=== PATIENT | male | born 2005 | race Caucasian/White ===

== ENCOUNTER 2024-03-23 23:13 | Emergency (ER) | payer OTHER, SELFPAY ==
--- OUTSIDE RECORDS SUMMARY | 2024-03-23 23:15 | XMS_ITS | Clinical Summary ---
Author Organization [facility] Address [place], [place] [address] Care Team Providers Care Promotional Marketing Agent Name Role Phone Joshua House MD Unavailable Unavail able Jay Espinoza MD Primary Care Provider [phone] Allergies No known active allergies Medications medication order composer Fish oil gummy - takes 2 per day 0 4 Active medication order composer Melatonin 3 mg gummy - takes 2 per night 0 4 Active melatonin [address] under the tongue. 0 6 Active triamcinolone (ARISTOCORT; KENALOG) 0.1 % creamIndication s:Rash Apply topically to affected area(s) three times daily. 80 g 3 Active hydrOXYzine pamoate (VISTARIL) 25 mg capsuleIndicati ons:Urticaria Take 1 Capsule (25 mg) by mouth 3 times daily if needed for Itching. 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 Acute bronchospasm 04/07/2008 Overview (04/07/2008): Uses neb 2-3x yearly Resolved Problems Problem Noted Date Diagnosed Date Resolved Date Other and unspecified noninf ectious gastroenteritis and colitis(558.9) 10/07 Overview (10/07/2013): rotavirus when 1 mo old /hospital x3 days Immunizations Name Administration Dates Next Due AMB Influenza, IIV3 (Age >=3 years)(Flu Clinic Only) 10/29/2012 DTaP 04/07/2008,07/11/2004 [id number] (Pediarix) 2003,2003,0 2003 HIB PRP-OMP (PedvaxHIB) 07/11/2004,2003, HPV 9 (Gardasil 9) 01/06/2018,07/06/2015 Hepatitis A (Peds) 01/06/2018,10/07/2013 Inactivated Polio Vaccine 04/07/2008 Influenza, IIV3 (Age >=3 years) 11/30/2009,12/29 MENINGOCOCCAL VACCINE 2 VIAL [id number] (MENVEO) 07/06/2015 MMR 04/07/2008,03/27/2004 Pneumococcal conj 7-Valent (Prevnar 7) 5,2003,2003 Td (Age >=7 Years) 08/10/2022 08/10/2032 Tdap 07/06/2015 Varicella Vaccine 07/06/2008,04/07/2008,07/12/19 05 Family History Medical History Relation Name Comments Good Health Father Psychiatric illness Maternal Aunt depress ion Good Health Mother Other Other maternal great- grandmother and great-aunts with breast ca Good Health Sister Relation Name Status Comments Father Maternal Aunt Mother Other Sister Social History Tobacco Use Types Packs/Day Years Used Date Smoking Tobacco: Former Cigarettes 0.3 2.3 S tarted: 12/18/2021 Smokeless Tobacco: Never Tobacco Cessation:Counseling Given: Not Answered Comments:Quit 06/2022 Alcohol Use Standard Drinks/Week Comments Never 0 (1 standard drink = 0.6 oz pur e alcohol) PHQ-2 Answer Date Recorded PHQ-2 Score 0 04/12/2018 Sex and Gender Information Value Date Recorded Sex Assigned at Not on file Legal Sex Male 6:20 PM CDT Gender Identity Not on file Sexual Orientation Not on file 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 file Not on file Not on file Obstetrics History Last Filed Vital Signs Vital Sign Reading Time Taken Comments Blood Pressure 102/68 09/10/2022 11:15 AM CDT Pulse 79 09/10/2022 11:15 AM CDT Temperature 36.4 C (97.5 F) 09/10/2022 11:15 AM CDT Respiratory Rate 16 07/10/2022 7:16 PM CDT Oxygen Saturation 99% 09/10/2022 11:15 AM CDT Inhaled Oxygen Concentration - - Weight 66.2 kg (146 lb) 09/10/2022 11:15 AM CDT Height 174 cm (5' 8.5) 09/10/2022 11:15 AM CDT Body Mass Index 21.88 09/10/2022 11:15 AM CDT Plan of Treatment Health Maintenance Due Date Last Done Comments HIV for age 15-65 2018 Depression screening for age 12+ 01/06/2019 01/06/2018, 11/02/2015, 07/06/2015 Well Child Check for age 3-20 01/06/2019 01/06/2018, 07/06/2015, 10/07/2013, Additional history exists Hepatitis C screening for age 18-79 2021 BMI (ht and wt on same day) for age 18+ 09/11/2023 09/10/2022, 08/27/2022, 07/19/2022 COVID-19 vaccine series ( season) 2023 Influenza for age 9-49 10/13/2023 3, 11/30/2009, 12/29/2005 Tetanus booster 08/10/2032 08/10/2022, 07/06/2015 Pneumococcal series for age 6-49 Aged Out 03/27/2004, 2003, 2003 No longer eligible based on patient's age to complete this topic Meningococcal series for age 11-21 Aged Out 07/06/2015 No longer eligible based on patient's age to complete this topic Tdap Completed 07/06/2015 HPV series for age 9-26 Completed 01/06/2018, 07/05 Insurance MEDICA CHOICE [employer] Care Teams Promotional Marketing Agent Relationship Specialty Start Date End Date Jay Espinoza MD [address] [place] [address] PCP - General Family Practice 08/10/22 Joshua House MD 07/10/22
[2024-03-23 23:18] VITALS: BP 118/75; PULSE 98; RESP 16; TEMP 36.8; O2SAT 96; BMI 19.5
--- NOTE | 2024-03-23 23:25 | ED.GENADULT ---
HPI - General Adult General Time Seen by Provider: 23:25 <Alyssa Campa MD - Last Filed: 03/24/24 18:46> Date Seen: 03/23/24 <Alyssa Campa MD - Last Filed: 03/24/24 18:46> Chief complaint: Unspecified Complaint, Adult <Alyssa Campa MD - Last Filed: 03/24/24 18:46> Stated complaint: poss carbon monoxide poisoning <Alyssa Campa MD - Last Filed: 03/24/24 18:46> Time Seen by Provider: 03/23/24 23:24 <Alyssa Campa MD - Last Filed: 03/24/24 18:46> Source: patient and RN notes reviewed <Alyssa Campa MD - Last Filed: 03/24/24 18:46> Mode of arrival: ambulatory <Alyssa Campa MD - Last Filed: 03/24/24 18:46> Limitations: no limitations <Alyssa Campa MD - Last Filed: 03/24/24 18:46> History of Present Illness HPI narrative: This 19-year-old male checks in after his girlfriend has been found to have a carboxyhemoglobin level of 24.2%. He was advised to check in after this finding. They both were riding in a car that has a car exhaust leak issue. They were in the car for about 2 hours running errands. Does have a dull headache. He does not have any complaints of any confusion or any tremors or neurologic changes while in the car. He states he does drive this car around a lot more than she does baseline. He admits that he felt a little woozy, felt some pressure behind his ears. He does have neck pain which she states is chronic. He is not short of breath, no chest pain. They did smoke marijuana tonight but neither of them are tobacco smokers routinely. <Alyssa Campa MD - Last Filed: 03/24/24 18:46> Related Data Home medications: Home Medications ?Medication ?Instructions ?Recorded ?Confirmed No Known Home Medications 03/23/24 03/23/24 <Alyssa Campa MD - Last Filed: 03/24/24 18:46> Allergies/adverse reactions: Allergies Allergy/AdvReac Type Severity Reaction Status Date / Time No Known Drug Allergies Allergy Verified 03/23/24 23:24 <Alyssa Campa MD - Last Filed: 03/24/24 18:46> Review of Systems Status of ROS: Reports: 6 or more systems reviewed and unremarkable except as noted in History and below <Alyssa Campa MD - Last Filed: 03/24/24 18:46> PFSH [facility] Social History: Social History Smoking Status: Light tobacco smoker Do you use any of these nicotine containing products: Vaping Products How often do you have a drink containing alcohol: never AUDIT-C Alcohol total score: 0 Non-prescribed substance use: marijuana (any form) <Alyssa Campa MD - Last Filed: 03/24/24 18:46> Exam Const: Vital Signs, click to edit/add: Vital Signs - 24 hr 03/23/24 23:18 03/23/24 23:24 03/24/24 00:22 Temperature 98.3 F Pulse Rate [Left P ulse Oximeter] 98 Respiratory Rate 16 Blood Pressure [Ri ght Upper Arm] 118/75 Pulse Oximetry 96 98 Oxygen Delivery Me thod Room Air Non Rebreather Mas k Oxygen Flow Rate 03/24/24 00:22 03/24/24 00:24 03/24/24 01:00 Temperature Pulse Rate [Left P ulse Oximeter] 82 73 67 Respiratory Rate 18 16 16 Blood Pressure [Ri ght Upper Arm] 89/56 L 118/65 Pulse Oximetry 98 99 99 Oxygen Delivery Me thod Room Air Non Rebreather Mas k Non Rebreather Mas k Oxygen Flow Rate 10 03/24/24 01:30 03/24/24 02:30 03/24/24 03:00 Temperature Pulse Rate [Left P ulse Oximeter] 54 L 53 L 51 L Respiratory Rate 16 16 16 Blood Pressure [Ri ght Upper Arm] 105/58 L 122/71 111/59 L Pulse Oximetry 99 98 100 Oxygen Delivery Me thod Non Rebreather Mas k Non Rebreather Mas k Non Rebreather Mas k Oxygen Flow Rate 10 10 10 03/24/24 06:05 Temperature Pulse Rate [Left P ulse Oximeter] 59 L Respiratory Rate 16 Blood Pressure [Ri ght Upper Arm] 117/65 Pulse Oximetry 100 Oxygen Delivery Me thod Non Rebreather Mas k Oxygen Flow Rate 10 This 19-year-old male is ambulatory in the ER with normal gait. He is alert, interactive, no apparent distress. Pupils equal round reactive, sclera clear, symmetrical facial function, speech is normal. Neck supple, no adenopathy or masses. Lungs are clear, good air entry, no wheezing or crackles. CV regular rate and rhythm, no murmur. Strength is 5 5 and symmetric he has no tremors, no dysmetria. <Alyssa Campa MD - Last Filed: 03/24/24 18:46> Vital Signs, click to edit/add: Vital Signs - 24 hr 03/23/24 23:18 03/23/24 23:24 03/24/24 00:22 Temperature 98.3 F Pulse Rate [Left P ulse Oximeter] 98 Respiratory Rate 16 Blood Pressure [Ri ght Upper Arm] 118/75 Pulse Oximetry 96 98 Oxygen Delivery Me thod Room Air Non Rebreather Mas k Oxygen Flow Rate 10 03/24/24 00:22 03/24/24 00:24 03/24/24 01:00 Temperature Pulse Rate [Left P ulse Oximeter] 82 73 67 Respiratory Rate 18 16 16 Blood Pressure [Ri ght Upper Arm] 89/56 L 118/65 Pulse Oximetry 98 99 99 Oxygen Delivery Me thod Room Air Non Rebreather Mas k Non Rebreather Mas k Oxygen Flow Rate 10 03/24/24 01:30 03/24/24 02:30 03/24/24 03:00 Temperature Pulse Rate [Left P ulse Oximeter] 54 L 53 L 51 L Respiratory Rate 16 16 16 Blood Pressure [Ri ght Upper Arm] 105/58 L 122/71 111/59 L Pulse Oximetry 99 98 100 Oxygen Delivery Me thod Non Rebreather Mas k Non Rebreather Mas k Non Rebreather Mas k Oxygen Flow Rate 10 10 03/24/24 06:05 Temperature Pulse Rate [Left P ulse Oximeter] 59 L Respiratory Rate 16 Blood Pressure [Ri ght Upper Arm] 117/65 Pulse Oximetry 100 Oxygen Delivery Me thod Non Rebreather Mas k Oxygen Flow Rate 10 <Fab Ricardo MD - Last Filed: 03/24/24 05:29> Documenting provider has reviewed patient's vital signs: yes <Alyssa Campa MD - Last Filed: 03/24/24 18:46> Course Course ED Course: Patient will have his labs drawn, will presume that his carboxyhemoglobin will be elevated. Will have him on non-rebreather 10 L oxygen, have him on pulse oximetry and cardiac monitoring. He will have an EKG and appropriate labs. <Alyssa Campa MD - Last Filed: 03/24/24 18:46> Reevaluation(s) Time of Reevaluation #1: 23:47 <Alyssa Campa MD - Last Filed: 03/24/24 18:46> Reevaluation #1: Carboxyhemoglobin was 18.6%. Patient is already on appropriate monitoring and 10 L non-rebreather oxygen. <Alyssa Campa MD - Last Filed: 03/24/24 18:46> Reevaluation #2: Patient signed out to Dr. Ricardo at shift change-midnight. Dr. Ricardo rechecked patient. He was resting comfortably in his chair next to his girlfriend. No complaints. Plan will be to keep him on 100% oxygen through non-rebreather for about 6 hours. Repeat troponin at 4:00 a.m.. Patient has no complaints. No current symptoms. Agreeable to the plan. <Fab Ricardo MD - Last Filed: 03/24/24 05:29> Reevaluation #3: Repeat troponin undetectable. Patient otherwise asymptomatic. Continuing oxygen therapy. Will continue until 6 hours of oxygen via non-rebreather. At that point as per sign-out by Dr. Pollard after discussion with the hyperbaric team at [facility] [place] [place], patient is safe for discharge home. <Fab Ricardo MD - Last Filed: 03/24/24 05:29> Consultations Consultation #1: Have spoken to medical guest experience specialist Dr. Randall from [facility] [place] [place]. He states that they are going away from a levels as levels do not necessarily correlate with symptoms. They would do 6 hours of non-rebreather oxygen. If patient had syncope, ongoing cardiac symptoms, persistent neurologic deficits, consideration for hyperbaric chamber would be made and we should contact them back. He would repeat a troponin. <Alyssa Campa MD - Last Filed: 03/24/24 18:46> Time: 00:12 <Alyssa Campa MD - Last Filed: 03/24/24 18:46> Consultation #2: Recheck-has completed 6 hours of oxygen non-rebreather. Remains asymptomatic. Stable for discharge as per Dr. Pollard's plan. Patient agreeable. <Fab Ricardo MD - Last Filed: 03/24/24 05:29> Vital Signs Vital signs: Initial Vital Signs Temperature 98.3 F 03/23/24 23:18 Temperature Source Oral 03/23/24 23:18 Pulse Rate 98 03/23/24 23:18 Respiratory Rate 16 03/23/24 23:18 Blood Pressure 118/75 03/23/24 23:18 Blood Pressure Mean 89 03/23/24 23:18 Blood Pressure Position Sitting 03/23/24 23:18 Pulse Oximetry 96 03/23/24 23:18 Oxygen Delivery Method Room Air 03/23/24 23:18 Vital Signs Temperature 98.3 F 03/23/24 23:18 Pulse Rate 98 03/23/24 23:18 Respiratory Rate 16 03/23/24 23:18 Blood Pressure 118/75 03/23/24 23:18 Pulse Oximetry 96 03/23/24 23:18 Oxygen Delivery Method Room Air 03/23/24 23:18 Temperature 98.3 F 03/23/24 23:18 Pulse Rate 59 L 03/24/24 06:05 Respiratory Rate 16 03/24/24 06:05 Blood Pressure 117/65 03/24/24 06:05 Pulse Oximetry 100 03/24/24 06:05 Oxygen Delivery Method Non Rebreather Mask 03/24/24 06:05 Oxygen Flow Rate 10 03/24/24 06:05 <Alyssa Campa MD - Last Filed: 03/24/24 18:46> Initial Vital Signs Temperature 98.3 F 03/23/24 23:18 Temperature Source Oral 03/23/24 23:18 Pulse Rate 98 03/23/24 23:18 Respiratory Rate 16 03/23/24 23:18 Blood Pressure 118/75 03/23/24 23:18 Blood Pressure Mean 89 03/23/24 23:18 Blood Pressure Position Sitting 03/23/24 23:18 Pulse Oximetry 96 03/23/24 23:18 Oxygen Delivery Method Room Air 03/23/24 23:18 Vital Signs Temperature 98.3 F 03/23/24 23:18 Pulse Rate 98 03/23/24 23:18 Respiratory Rate 16 03/23/24 23:18 Blood Pressure 118/75 03/23/24 23:18 Pulse Oximetry 96 03/23/24 23:18 Oxygen Delivery Method Room Air 03/23/24 23:18 Temperature 98.3 F 03/23/24 23:18 Pulse Rate 59 L 03/24/24 06:05 Respiratory Rate 16 03/24/24 06:05 Blood Pressure 117/65 03/24/24 06:05 Pulse Oximetry 100 03/24/24 06:05 Oxygen Delivery Method Non Rebreather Mask 03/24/24 06:05 Oxygen Flow Rate 10 03/24/24 06:05 <Fab Ricardo MD - Last Filed: 03/24/24 05:29> Medical Decision Making Lab Data Lab results reviewed: Yes I reviewed the patient's lab results <Alyssa Campa MD - Last Filed: 03/24/24 18:46> Lab results narrative: Troponin is normal. <Alyssa Campa MD - Last Filed: 03/24/24 18:46> Labs: Lab Results 03/23/24 03/23/24 03/24/24 Range/Units 23:24 23:35 04:00 WBC 13.92 H (4.50-11.00) K/uL RBC 5.66 (4.30-5.90) m/uL Hgb 16.1 (13.5-17.5) gm/dL Hct 46.9 (37.0-53.0) % MCV 83 (80-100) fL MCH 28 (26-34) pg MCHC 34 (32-36) gm/dL RDW Coeff of Ariel 12.3 (11.5-15.5) % Plt Count 359 (140-440) K/uL Neut % (Auto) 54.6 (42.0-72.0) % Lymph % (Auto) 34.3 (20-44) % [place] % (Auto) 8.8 (0.0-11.0) % Eos % (Auto) 1.7 (0.0-7.0) % Baso % (Auto) 0.4 (0.0-3.0) % Neut # (Auto) 7.60 H (1.7-7.0) K/uL Lymph # (Auto) 4.80 H (0.90-2.90) K/uL [place] # (Auto) 1.20 H (0.00-0.90) K/UL Eos # (Auto) 0.20 (0.00-0.50) K/uL Baso # (Auto) 0.10 (0.00-0.30) K/uL Abs Immat Gran (auto) 0.00 (0.00-0.30) K/uL Imm/Tot Granulo (auto) 0.2 % VBG pH 7.374 (7.32-7.43) VBG pCO2 52 H (40-50) mmHG VBG pO2 < 30.1 (25-47) mmHG VBG HCO3 30 H (21-28) mmol/L Carboxyhemoglobin 18.6 H* (0.0-5.0) % Sodium 141 (135-149) mmol/L Potassium 3.5 L (3.6-5.1) mmol/L Chloride 100 (96-114) mmol/L Carbon Dioxide 29 (20-32) mmol/L Anion Gap 12 (7-15) mEq/L BUN 15 (5-24) mg/dL Creatinine 0.9 (0.5-1.5) mg/dL Estimated Creat Clear 109.95 Estimated GFR 125 ml/min Glucose 81 (60-115) mg/dL Calcium 10.0 (8.4-10.6) mg/dL Total Bilirubin 0.4 (0.1-1.5) mg/dL AST 27 (12-35) U/L ALT 21 (4-50) U/L Alkaline Phosphatase 55 (40-150) U/L Total Protein 8.8 H (6.0-8.3) g/dL Albumin 5.3 H (3.3-5.0) g/dL POC Troponin I 0.00 L 0.00 L (0.01-0.04) ng/ml <Alyssa Campa MD - Last Filed: 03/24/24 18:46> Lab Results 03/23/24 03/23/24 03/24/24 Range/Units 23:24 23:35 04:00 WBC 13.92 H (4.50-11.00) K/uL RBC 5.66 (4.30-5.90) m/uL Hgb 16.1 (13.5-17.5) gm/dL Hct 46.9 (37.0-53.0) % MCV 83 (80-100) fL MCH 28 (26-34) pg MCHC 34 (32-36) gm/dL RDW Coeff of Ariel 12.3 (11.5-15.5) % Plt Count 359 (140-440) K/uL Neut % (Auto) 54.6 (42.0-72.0) % Lymph % (Auto) 34.3 (20-44) % [place] % (Auto) 8.8 (0.0-11.0) % Eos % (Auto) 1.7 (0.0-7.0) % Baso % (Auto) 0.4 (0.0-3.0) % Neut # (Auto) 7.60 H (1.7-7.0) K/uL Lymph # (Auto) 4.80 H (0.90-2.90) K/uL [place] # (Auto) 1.20 H (0.00-0.90) K/UL Eos # (Auto) 0.20 (0.00-0.50) K/uL Baso # (Auto) 0.10 (0.00-0.30) K/uL Abs Immat Gran (auto) 0.00 (0.00-0.30) K/uL Imm/Tot Granulo (auto) 0.2 % VBG pH 7.374 (7.32-7.43) VBG pCO2 52 H (40-50) mmHG VBG pO2 < 30.1 (25-47) mmHG VBG HCO3 30 H (21-28) mmol/L Carboxyhemoglobin 18.6 H* (0.0-5.0) % Sodium 141 (135-149) mmol/L Potassium 3.5 L (3.6-5.1) mmol/L Chloride 100 (96-114) mmol/L Carbon Dioxide 29 (20-32) mmol/L Anion Gap 12 (7-15) mEq/L BUN 15 (5-24) mg/dL Creatinine 0.9 (0.5-1.5) mg/dL Estimated Creat Clear 109.95 Estimated GFR 125 ml/min Glucose 81 (60-115) mg/dL Calcium 10.0 (8.4-10.6) mg/dL Total Bilirubin 0.4 (0.1-1.5) mg/dL AST 27 (12-35) U/L ALT 21 (4-50) U/L Alkaline Phosphatase 55 (40-150) U/L Total Protein 8.8 H (6.0-8.3) g/dL Albumin 5.3 H (3.3-5.0) g/dL POC Troponin I 0.00 L 0.00 L (0.01-0.04) ng/ml <Fab Ricardo MD - Last Filed: 03/24/24 05:29> ECG Data Attestation: I personally reviewed and interpreted this ECG as follows: (Normal sinus rhythm, 85 beats per minute. No evidence of any arrhythmia or ischemic change.) <Alyssa Campa MD - Last Filed: 03/24/24 18:46> Prior ECG tracings: not available for review <Alyssa Campa MD - Last Filed: 03/24/24 18:46> Discharge Plan Discharge Clinical Impression: Accidental poisoning by carbon monoxide <Alyssa Campa MD - Last Filed: 03/24/24 18:46> Patient Disposition: Home, Self-Care <Alyssa Campa MD - Last Filed: 03/24/24 18:46> Condition: Stable <Alyssa Campa MD - Last Filed: 03/24/24 18:46> Instructions: Carbon Monoxide Poisoning (ED) <Alyssa Campa MD - Last Filed: 03/24/24 18:46> Additional Instructions: You really need to get the exhaust system fixed in your vehicle for safety purposes. As you are aware, carbon monoxide poisoning can be lethal. People can also suffer from chronic issues due to carbon monoxide poisoning. I highly advise you to not operate this vehicle until this issue is fixed. Would not recommend any use of any cigarettes or vaping products at this time, they can increase the carboxyhemoglobin level. <Alyssa Campa MD - Last Filed: 03/24/24 18:46> Activity Level: Activity as Tolerated <Alyssa Campa MD - Last Filed: 03/24/24 18:46> Activity as Tolerated <Fab Ricardo MD - Last Filed: 03/24/24 05:29> Prescriptions: No Action No Known Home Medications <Alyssa Campa MD - Last Filed: 03/24/24 18:46> Follow Up/Referrals: Joshua House MD [Primary Care Provider] - <Alyssa Campa MD - Last Filed: 03/24/24 18:46> Stand Alone Forms: [employer] Info Instructions <Alyssa Campa MD - Last Filed: 03/24/24 18:46>
[2024-03-23 23:43] LABS: Basophils Percent Auto 0.4 % (0.0-3.0); Eosinophils Percent Auto 1.7 % (0.0-7.0); Hematocrit 46.9 % (37.0-53.0); Hemoglobin* 16.1 gm/dL (13.5-17.5); Immature Granulocytes Pct Auto 0.2 %; Lymphocytes Percent Auto 34.3 % (20-44); Mean Corpuscular HGB Conc 34 gm/dL (32-36); Mean Corpuscular Hemoglobin 28 pg (26-34); Mean Corpuscular Volume 83 fL (80-100); Monocytes Percent Auto 8.8 % (0.0-11.0); Neutrophils Percent Auto 54.6 % (42.0-72.0); Platelet Count* 359 K/uL (140-440); RDW Coefficient of Variation % 12.3 % (11.5-15.5); Red Blood Count 5.66 m/uL (4.30-5.90); White Blood Count* 13.92 K/uL (4.50-11.00)
[2024-03-23 23:45] LABS: HCO3 VBG 30 mmol/L (21-28); PCO2 VBG 52 mmHG (40-50); PO2 VBG < 30.1 mmHG (25-47); Slide Review Reflex No; pH VBG 7.374 (7.32-7.43)
[2024-03-23 23:46] LABS: Carboxyhemoglobin* 18.6 % (0.0-5.0)
[2024-03-24] VITALS (7 sets, daily range): BP systolic 89–122; BP diastolic 56–71; PULSE 51–82; RESP 16–18; O2SAT 98–100
[2024-03-24 00:01] LABS: Albumin* 5.3 g/dL (3.3-5.0)
[2024-03-24 00:02] LABS: Chloride* 100 mmol/L (96-114); Potassium* 3.5 mmol/L (3.6-5.1); Sodium* 141 mmol/L (135-149)
[2024-03-24 00:05] LABS: Alanine Aminotransferase* 21 U/L (4-50); Alkaline Phosphatase* 55 U/L (40-150); Anion Gap 12 mEq/L (7-15); Aspartate Amino Transferase* 27 U/L (12-35); Bilirubin Total* 0.4 mg/dL (0.1-1.5); Blood Urea Nitrogen* 15 mg/dL (5-24); Carbon Dioxide* 29 mmol/L (20-32); Creatinine* 0.9 mg/dL (0.5-1.5); Est. Creatinine Clearance* 109.95; Estimated Glomerular Filt Rate 125 ml/min; Glucose* 81 mg/dL (60-115); Total Protein* 8.8 g/dL (6.0-8.3)
--- OUTSIDE RECORDS SUMMARY | 2024-03-24 00:56 | XMS_ITS | Clinical Summary ---
Author Organization [facility] Address [place], [place] [address] Care Team Providers Care Group Worker Name Role Phone Joshua House MD Unavailable Unavail able Jay Espinoza MD Primary Care Provider [phone] Allergies No known active allergies Medications medication [...] >=3 years)(Flu Clinic Only) 10/29/2012 DTaP 04/07/2008,07/11/2004 [id number] (Pediarix) 2003,2003,0 2003 HIB PRP-OMP (PedvaxHIB) 07/11/2004,2003, [...] 07/05 Insurance MEDICA [employer]ICE [employer] Care Teams Group Worker Relationship Specialty Start Date End Date Jay Espinoza MD [address] [place] [address] PCP - General Family Practice 08/10/22 Joshua House MD 07/10/22
--- NOTE | 2024-03-24 06:21 | ED.NURSE ---
0400 ed poc trop 0.00
== END 2024-03-24 06:11 | disposition home or self-care (01) ==
PROVIDERS: Family Medicine; Emergency Provider Emergency Medicine; PCP Family Medicine
DX: T59.7X1A Toxic effect of carbon dioxide, accidental (unintentional), initial encounter (principal)
CPT/HCPCS: 36415; 80053; 82375; 82803; 84484; 85025; 93005; 94761; 99284; 99285